=== PATIENT | female | born 1975 | race Two or more races ===

== ENCOUNTER 2024-12-15 10:37 | Emergency (ER) | payer OTHER ==
[~2024-12-15] VITALS: Ht 167.6 cm; Wt 70.8 kg
[2024-12-15] MEDS ORDERED: BACLOFEN10 MG PO (14:45)
[2024-12-15] MEDS ORDERED: DICLOFENAC SODI75 MG PO (14:45)
[2024-12-15] MEDS ORDERED: KETOROLAC TROMETHAMINE 60 MG VIAL IM ONE (15:00)
[2024-12-15] MEDS ORDERED: ORPHENADRINE CITRATE 30 MG/ML AMPUL IM ONE (15:00)
[2024-12-15] MEDS ORDERED: DEXAMETHASONE SODIUM PHOSPHATE 4 MG/ML VIAL IM ONE (15:00)
== END 2024-12-15 15:06 | disposition home or self-care (01) ==
LOC: ER 10:40
DX: M62.838 Other muscle spasm (principal)
CPT/HCPCS: 96372; 99282; J1100; J1885; J2360